=== PATIENT | male | born 2000 | race Caucasian/White ===

== ENCOUNTER 2019-09-19 12:27 | Emergency (ER) | payer BC ==
[2019-09-19 12:31] VITALS: BP 112/86; BMI 40.7
--- NOTE | 2019-09-19 12:40 | PDOC ---
History of Present Illness - General Chief Complaint: Respiratory Stated Complaint: COUGH Time Seen by Provider: 09/19/19 12:40 History Source: Patient Exam Limitations: No Limitations - History of Present Illness Initial Comments: HPI: 19 y/o male presenting to [facility] ER complaining of fevers, chills, body aches, generalized headache, and nonproductive cough for the past two days. Pt' s sister was diagnosed with influenza on 16 Sep 2018 at [facility] ED. Was not able to start Tamiflu because the pharmacy did not have the medication in stock. Pt tried Tylenol yesterday with transient relief. Did not take any medication today. Tolerating PO well. Pt's mother, father, and sister also present in the department with similar symptoms. Medical Hx: - Denies past medical history. Denies prescription medications. Surgical Hx: - Pt denies past surgical history. Review of Systems: In addition to that documented in the HPI above, the additional ROS was obtained : Constitutional- Endorses fevers and chills ENMT- Denies sore throat CV- Denies chest pain Resp- Denies SOB GI- Denies vomiting or diarrhea - Denies dysuria, hematuria, or urinary frequency Physical Examination: Vital signs and nursing notes reviewed. Constitutional- Puny appearing adult male in no acute distress but mild obvious discomfort. Found semi-fowlers on hospital bed. Answered all questions appropriately and completely. Head- Normocephalic. No obvious external signs of trauma. Eyes- Sclerae white. Conjunctiva moist and not injected. Nose- No nasal discharge. Throat- Mild posterior oropharyngeal erythema without exudate. No inflammation, swelling, exudate, or lesions. Neck- Supple, trachea is midline. Cardiovascular / Chest- Tachycardic rate with regular rhythm. No murmur, rubs, clicks, or gallops. Peripheral pulses- radial pulses full. Respiratory- Breathing unlabored. Equal chest rise and fall. Clear to auscultation bilaterally. No stridor, no wheezing, no rhonchi. Gastrointestinal- abdomen is soft, non-tender, non-distended. Neuro- Alert and oriented x4. Moving all four extremities spontaneously. Skin- Warm, dry, and intact. Psych- Affect- appropriate. Mood- normal. Speech was non-labored, non- pressured. MDM: 19 y/o male presenting with influenza like symptoms in the setting of known influenza exposure. Febrile at triage; given acetaminophen. Vitals remarkable for tachycardia without hypotension. Physical exam as described above. Normoxic on room air. Appears well hydrated. Suspect likely influenza. Pt has no significant comorbidities. Falls outside of CDC Tamiflu treatment guidelines. Will provide supportive care instructions and return precautions. Ezio Reyez M.D., PGY2 Emergency Medicine Resident Past History - Past Medical History Allergies/Adverse Reactions: Allergies Allergy/AdvReac Type Severity Reaction Status Date / Time No Known Allergies Allergy Verified 09/19/19 12:28 Home Medications: Ambulatory Orders NK [No Known Home Medication] 09/19/19 COPD: No - Psycho Social/Smoking Cessation Hx Smoking History: Never smoked Information on smoking cessation initiated: No Hx Alcohol Use: No *Physical Exam - Vital Signs Last Vital Signs Temp Pulse Resp BP Pulse Ox 101.5 F H 108 H 20 112/86 97 09/19/19 12:27 09/19/19 12:27 09/19/19 12:27 09/19/19 12:27 09/19/19 12:27 Discharge - Discharge Information Problems reviewed: Yes Clinical Impression/Diagnosis: Influenza-like illness, Exposure to influenza Condition: Good Disposition: HOME - Admission No - Follow up/Referral - Patient Discharge Instructions Patient Printed Discharge Instructions: DI for Influenza -- Adult Additional Instructions: You were seen today for flu-like symptoms. It is very likely that you also have the flu given your family member that tested positive at [facility] ED. You fall outside of the guidelines of pt's that should receive Tamiflu. It likely would not help your symptoms. Make sure to stay well hydrated over the next several days. You can take over the counter Tylenol or Advil as needed for pain and fever. Take as directed on the package insert. Do not exceed the recommended dosage. You need to avid children, women, or immunocompromised persons while you are febrile. The flu is highly contagious. Please read the attached paperwork on the flu. Follow up with your primary care doctor in the next week or as needed. You will need to call to make an appointment. The number is included in this packet. A copy of todays results are attached to this packet. Take it to the appointment so your doctor can review them. Go to the nearest emergency department if your condition worsens or you feel like you need additional emergency evaluation. Print Language: PU[place] RICAN - Post Discharge Activity Work/Back to School Note: Back to Work
[2019-09-19] MEDS ORDERED: ACETAMINOPHEN 500 MG TABLET (FP) PO ONE (12:47)
[2019-09-19] MEDS ORDERED: ACETAMINOPHEN 325 MG TABLET (FP) ONE (12:49)
[2019-09-19 13:29] VITALS: PULSE 98; TEMP 100
--- NOTE | 2019-09-19 13:37 | PDOC ---
Attending Attestation - Resident Resident Name: Ezio Reyez - ED Attending Attestation I have performed the following: I have examined & evaluated the patient, The case was reviewed & discussed with the resident, I agree w/resident's findings & plan - HPI HPI: 09/19/19 13:35 Healthy 19-year-old male with no significant past medical history and no smoking history presents with fever/chills/myalgia and diarrhea since yesterday in the setting of known exposure to influenza via his sister. Feels much better after Tylenol. - Physicial Exam PE: 09/19/19 13:35 Febrile, slight tachycardia. Fever improved/resolved after Tylenol Well-appearing seated in chair speaking full sentences Oropharynx clear, neck supple Lungs are clear without wheezing or focally decreased breath sounds Heart was regular slight tachycardia, abdomen benign - Medical Decision Making 09/19/19 13:36 Healthy 19-year-old male with no significant past medical history presents with influenza-like illness, no other red flags on history or physical exam. No findings to suggest superimposed respiratory distress or pneumonia. No indication for emergent testing or treatment No indication for emergent imaging Patient reassured along with family, agree with discharge plan, understand return criteria
== END 2019-09-19 13:39 | disposition home or self-care (01) ==
LOC: FER 12:27
DX: Z20.818 Contact with and (suspected) exposure to other bacterial communicable diseases (principal)
CPT/HCPCS: 99282-25